=== PATIENT | female | born 1975 | race Asian ===

== ENCOUNTER 2017-04-08 11:05 | Inpatient (IN) | payer OTHER ==
[2017-04-08] VITALS (20 sets, daily range): BP systolic 94–105; BP diastolic 48–74; PULSE 66–90; RESP 14–27; Ht 165.1 cm; Wt 47.6 kg
[~2017-04-08] VITALS: Ht 165.1 cm; Wt 47.6 kg
[~2017-04-08 11:05] MED LIST: AMPICILLIN/SULB 3 GM/NS (PMX) 100 ML IVPB SCH; GLYCOPYRROLATE 0.4 MG INJ ONE; Metronidazole 500 MG in NS 100 ML IVPB SCH; NEOSTIGMINE 3 MG/3 ML SYRINGE ONE; SOD CHLORIDE 0.9% 1,000 ML IV SCH; metroNIDAZOLE 500 MG/100 ML NS IVPB ONE
[2017-04-08] MEDS ORDERED: BUPIVACAINE 0.25%/EPI (SDV) 30 ML INJ ONE (11:14)
[2017-04-08] MEDS ORDERED: LIDOCAINE 2% (SDV) 5 ML INJ ONE (13:40)
[2017-04-08] MEDS ORDERED: PROPOFOL 20 ML ONE (13:40)
[2017-04-08] MEDS ORDERED: ROCURONIUM 50 MG INJ ONE (13:40)
[2017-04-08] MEDS ORDERED: MIDAZOLAM 1 MG/ML 2 ML INJ ONE (13:40)
[2017-04-08] MEDS ORDERED: DIPHENHYDRAMINE 50 MG INJ IV PRN (14:00)
[2017-04-08] MEDS ORDERED: METOCLOPRAMIDE 10 MG INJ IV PRN (14:00)
[2017-04-08] MEDS ORDERED: LABETALOL HCL 20MG INJ IV PRN (14:00)
[2017-04-08] MEDS ORDERED: EPHEDrine SULFATE 50 MG/5 ML SYG IV PRN (14:00)
[2017-04-08] MEDS ORDERED: HYDROmorphONE (0.2 MG/ML) 10ML SYG IV PRN ×3 (14:00)
[2017-04-08] MEDS ORDERED: hydrALAzine 20 MG INJ IV PRN (14:00)
[2017-04-08] MEDS ORDERED: MEPERIDINE 25 MG INJ IV PRN (14:00)
[2017-04-08] MEDS ORDERED: FENTAnyl 50 MCG/ML VIAL IV PRN ×3 (14:00)
[2017-04-08] MEDS ORDERED: ONDANSETRON 4 MG INJ IV PRN (14:00)
[2017-04-08] MEDS ORDERED: BUPIVACAINE 0.25% (MPF) 30 ML INJ ONE (14:18)
[2017-04-08] MEDS ORDERED: ZOLPIDEM 5 MG TAB PO PRN (14:30)
[2017-04-08] MEDS ORDERED: NALOXONE (0.4 MG/ML) INJ IV PRN ×2 (14:30→18:30)
[2017-04-08] MEDS ORDERED: HYDROCODONE/APAP (5/325) TAB PO PRN (14:30)
[2017-04-08] MEDS ORDERED: HYDROmorphONE 1 MG/ML SYG IV PRN (14:30)
[2017-04-08] MEDS ORDERED: METHYLENE BLUE 1% 10 ML INJ ONE (15:56)
[2017-04-08] MEDS ORDERED: DEXAMETHASONE 4 MG/ML 1 ML INJ ONE (16:39)
[2017-04-08] MEDS ORDERED: ONDANSETRON 4 MG INJ ONE (16:40)
[2017-04-08] MEDS ORDERED: BUPIVACAINE 0.25% (MPF) 10 ML 10 ML VIAL ONE (17:49)
--- NOTE | 2017-04-08 18:07 | OPR ---
Date/Time of Note Date/Time of Note DATE: 04/08/17 TIME: 18:07 Operative Report Procedure Date: Apr 08, 2017 Preoperative Diagnosis colon cancer Postoperative Diagnosis sigmoid colon cancer Operation Performed lap left hemicolectomy with anastomosis lap splenic flexure mobilization Surgeon: Ranulfo ADAMS G. SEONG Apr 08, 2017 18:07
--- NOTE | 2017-04-08 18:21 | OPR ---
DATE OF OPERATION: 04/08/2017 INDICATION: This is a 41-year-old female with obstructive and bleeding sigmoid colon cancer. She is taken urgently to the OR for laparoscopic left hemicolectomy. Risks, alternatives, benefits, and personnel were discussed with the patient. Potential complications include but not limited to bleeding, infection, ureteral injury, anastomotic leak, need for reoperation, possible colostomy were discussed with the patient. She expressed understanding and consents to the operation. PREOPERATIVE DIAGNOSIS: Obstructive and bleeding colon cancer. POSTOPERATIVE DIAGNOSIS: Obstructive and bleeding colon cancer. OPERATION PERFORMED: 1. Laparoscopic left hemicolectomy with low pelvic colorectal anastomosis 2. Laparoscopic splenic flexure mobilization. 3. Laparoscopic lysis of adhesiona one hour SURGEON: Caleb Martinez MD SPECIMEN: Left colon and sigmoid colon. COMPLICATIONS: None. ANESTHESIA: General. SPECIMEN: Left colon with a single stitch distal and double stitch proximal margins. DESCRIPTION OF PROCEDURE: The patient was taken to the OR and prepped and draped in the usual sterile fashion. Surgical timeout was performed. IV antibiotics were given. Infraumbilical midline incision was made with a 15 blade. Dissection cautery was carried down to the fascia, 0 Vicryl stay sutures were placed of fashion. The fascia was opened. Balloon Elver trocar was introduced. Pneumoperitoneum was established. A suprapubic 12 mm optical trocar and right lower quadrant 12 mm optical trocars are placed under direct visualization. Upon initial inspection, there was an obvious sigmoid colon cancer with contraction in the sigmoid colon. There is no evidence of metastases in the abdomen. The liver remnant, which was the right liver, was examined. There is no evidence of obvious metastases on the liver surface. Dissection was first performed by identifying the left colic artery. Handheld Harmonic was used to isolate the left colic artery. The left ureter was also identified and peristalsis was identified. The left colic artery was divided using a 45 mm [place] vascular load stapler. The peritoneum was divided proximally and distally down to near the sacral promontory. The white line of [place] was also then divided proximally and distally. Splenic flexure mobilization was performed by dividing the omentum from the transverse mesocolon. This was taken off distally around the splenic flexure. The left colon was mobilized medially using blunt and Harmonic dissection. The splenic flexure was completely mobilized. The proximal rectum was then divided by using handheld Harmonic to divide the peritoneum and careful dissection underneath the posterior to the proximal rectum. This area was divided using a fire of the 45 [place] blue load stapler. The mesorectum was divided using a fire of the 45 [place] vascular load. The colon cancer was identified distally. The mesocolon of the left colon was then divided with continued dissection proximally near the midline. The colon was marked for anastomosis by placing several clips in the epiploicae of the colon. The extracorporal portion was then performed. Midline incision is extended around the umbilicus and superiorly. The fascia was divided. The left colon and sigmoid colon are mobilized and exteriorized after wound protector was placed into the midline incision. The proximal colon was then divided using several fires of a blue load 45 [place] stapler. The staple line was then cut out with scissors. EEA anvil 29 was placed after sizes are placed through the proximal colon. This was secured in place with a pursestring of 3-0 PDS. Gelport was placed on top of the wound protector. EEA sizers are placed into the rectum up to the 29 sizer. EEA stapler was placed for anastomosis and the anvil was reapproximated directly under direct visualization. A leak test was performed by first irrigating the pelvis with proximal occlusion and a bulb syringe. There was no evidence of any bubbles or an anastomotic leak. The irrigation was suctioned out. Intraoperative consult was made to evaluate the colon cancer. Distal and proximal margins are clear. Midline incision was closed with a running 0 PDS from superior to inferior, inferior to superior, and tied down. The wound was irrigated with Betadine. Skin was closed with interrupted 3-0 Vicryl and running 4-0 Monocryl. Local anesthesia was injected. Dry dressings were applied. Dictated By: CALEB GUERRERO/ELICEO Conf#: [id number] DID#: [id number] JANET
--- NOTE | 2017-04-08 18:29 | OPPN ---
Date/Time of Note Date/Time of Note DATE: 04/08/17 TIME: 18:29 Post-Anesthesia Notes Post-Anesthesia Note Last documented vital signs Vital Signs Date Time Temp Pulse Resp B/P Pulse Ox O2 Delivery O2 Flow Rate FiO2 04/08/17 18:08 98.2 27 105/53 99 Room Air 04/08/17 13:23 72 Activity: WNL Respiratory function: WNL Cardiovascular function: WNL Mental status: Baseline Pain reasonably controlled: Yes Hydration appropriate: Yes Nausea/Vomiting absent: Yes ARMANI ROSEN Apr 08, 2017 18:29
[2017-04-08] MEDS ORDERED: KETOROLAC 30 MG INJ IV PRN (18:30)
[2017-04-08 19:09] LABS: ADD SCAN DIFF NO
[2017-04-08 19:21] LABS: ABNORMAL IP MESSAGE 1; HEMATOCRIT 34.9 % (37.0-47.0); HEMOGLOBIN 10.9 g/dl (12.0-16.0); MEAN CORPUSCULAR HEMOGLOBIN 25.3 pg (29.0-33.0); MEAN CORPUSCULAR HGB CONC 31.2 g/dl (32.0-37.0); MEAN PLATELET VOLUME 10.5 fl (7.4-10.4); PLATELET COUNT 200 10^3/UL (140-415); RED BLOOD COUNT 4.31 10^6/ul (4.20-5.40); RED CELL DISTRIBUTION WIDTH 21.4 % (11.5-14.5); WHITE BLOOD COUNT 11.1 10^3/ul (4.8-10.8)
[2017-04-08 19:32] LABS: ALBUMIN 3.5 g/dl (3.3-4.9); ALBUMIN/GLOBULIN RATIO 1.4; BILIRUBIN,INDIRECT 0.3 mg/dl (0-1.1); BILIRUBIN,TOTAL 0.3 mg/dl (0.2-1.3); CALCIUM 7.6 mg/dl (8.4-10.2); CREATININE 0.59 mg/dl (0.44-1.00)
[2017-04-08] MEDS: HYDROmorphONE 1 MG/ML SYG IV PRN (19:35)
[2017-04-08] MEDS: D5W-0.45 NACL + KCL 20 MEQ 1,000 ML IV SCH (20:06)
[2017-04-08] MEDS: HYDROmorphONE 0.2 MG/ML PCA IV SCH (20:08)
[2017-04-08 20:49] LABS: EOSINOPHILS # 0.1 10^3/ul (0.0-0.5); LYMPHOCYTES # 0.6 10^3/ul (0.8-2.9); MONOCYTE # 0.3 10^3/ul (0.3-0.9); NEUTROPHIL # 9.5 10^3/ul (1.6-7.5)
[2017-04-08] MEDS: AMPICILLIN/SULB 3 GM/NS (PMX) 100 ML IVPB SCH (21:14)
[2017-04-08] MEDS: metroNIDAZOLE 500 MG/NS (PMX) 100 ML IVPB SCH (22:26)
[2017-04-09] VITALS: BP 95/54; PULSE 86; RESP 16
[2017-04-09] MEDS: AMPICILLIN/SULB 3 GM/NS (PMX) 100 ML IVPB SCH ×3 (02:24→12:06)
[2017-04-09] MEDS: D5W-0.45 NACL + KCL 20 MEQ 1,000 ML IV SCH ×3 (04:03→23:31)
[2017-04-09] MEDS: KETOROLAC 30 MG INJ IV PRN (04:23)
[2017-04-09] MEDS: HYDROmorphONE 0.2 MG/ML PCA IV SCH ×3 (04:52→20:04)
[2017-04-09 05:16] LABS: ADD SCAN DIFF NO; BASOPHILS % 0.1 % (0.0-2.0); HEMATOCRIT 30.9 % (37.0-47.0); HEMOGLOBIN 9.7 g/dl (12.0-16.0); LYMPHOCYTES # 0.7 10^3/ul (0.8-2.9); LYMPHOCYTES % 4.8 % (15.0-51.0); MEAN CORPUSCULAR HEMOGLOBIN 25.6 pg (29.0-33.0); MEAN CORPUSCULAR HGB CONC 31.4 g/dl (32.0-37.0); MEAN CORPUSCULAR VOLUME 81.5 fl (82.0-101.0); MEAN PLATELET VOLUME 10.2 fl (7.4-10.4); MONOCYTE # 0.6 10^3/ul (0.3-0.9); MONOCYTES % 4.3 % (0.0-11.0); NEUTROPHIL # 12.5 10^3/ul (1.6-7.5); NEUTROPHILS % 90.3 % (39.0-77.0); PLATELET COUNT 182 10^3/UL (140-415); RED BLOOD COUNT 3.79 10^6/ul (4.20-5.40); RED CELL DISTRIBUTION WIDTH 21.2 % (11.5-14.5); WHITE BLOOD COUNT 13.8 10^3/ul (4.8-10.8)
[2017-04-09 05:40] LABS: ALBUMIN 3.2 g/dl (3.3-4.9); ALBUMIN/GLOBULIN RATIO 1.28; BILIRUBIN,INDIRECT 0.3 mg/dl (0-1.1); BILIRUBIN,TOTAL 0.3 mg/dl (0.2-1.3); CALCIUM 7.9 mg/dl (8.4-10.2); CREATININE 0.55 mg/dl (0.44-1.00); POTASSIUM 4.5 mmol/L (3.5-5.1); TOTAL PROTEIN 5.7 g/dl (6.1-8.1)
[2017-04-09] MEDS: metroNIDAZOLE 500 MG/NS (PMX) 100 ML IVPB SCH ×2 (05:49→10:48)
[2017-04-09 09:07] VITALS: BP 87/59; RESP 18
--- NOTE | 2017-04-09 10:40 | HP ---
DATE OF ADMISSION: 04/08/2017 CHIEF COMPLAINT AND HISTORY OF PRESENT ILLNESS: The patient is a 41-year-old female who underwent colonoscopy due to abdominal pain and rectal bleed and was diagnosed with obstructive and bleeding s igmoid colon cancer. The patient was seen by Dr. Martinez as an outpatient and was brought into the hosp ital and underwent laparoscopic left hemicolectomy. The patient is being admitted for further evalu ation and management. During surgery, there was no evidence of obvious metastasis on the liver surf sabas. The patient underwent laparoscopic left hemicolectomy with low pelvic colorectal anastomosis. The patient denies any chest pain or shortness of breath since surgery. No reported fever or chill s. No reported leg edema or any weakness in the lower extremities. The patient's blood pressures h ave been running between 80s and 90s, although the patient remains asymptomatic. The patient contin ues to receive IV fluids. The patient also remains awake, alert, and postoperative pain is reasonab ly controlled. REVIEW OF SYSTEMS: Other than postoperative pain, the rest of review of systems were unremarkable. PAST SURGICAL HISTORY: The patient is status post surgery as a partial liver donor to her daughter several years ago. ALLERGIES: NONE. SOCIAL HISTORY: The patient occasionally smokes. FAMILY HISTORY: Negative for CA colon. PHYSICAL EXAMINATION: GENERAL: The patient is conscious, awake, alert. VITAL SIGNS: Temperature 98.2, pulse 86, respirations 16, blood pressure 95/54, O2 saturation 98% o n 2 liters nasal cannula. HEENT: No eye discharge or redness. Oropharynx clear. NECK: No mass. CHEST: Fairly clear. CARDIOVASCULAR: S1, S2 normal. No murmur. ABDOMEN: The patient is status post surgery. EXTREMITIES: No leg edema. Pedal pulses palpable. SKIN: Without acute rash. NEUROLOGIC: The patient is awake, alert, fairly oriented with no gross focal deficit. LABORATORY DATA: On the day of admission, WBC 11.1, hemoglobin 10.9, platelets 200. Sodium 140, po tassium 4, BUN 11, creatinine 0.5. White count today is 13.8. The patient, however, does not have any fever. IMPRESSION: 1. Sigmoid cancer status post laparoscopic left hemicolectomy with low pelvic colorectal anastomosi s. 2. 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 PLAN: The patient will be kept n.p.o. and we will continue IV fluids. We will use IV Dilaudid and IV Toradol for pain control. The patient did receive Unasyn and Flagyl perioperatively as per samantha col. We will use SCDs for DVT prophylaxis. We will continue to follow her from a medical standpoin t. Dictated By: NATHAN CARVAJAL/ELICEO Conf#: [id number] DID#: [id number]
[2017-04-09] MEDS: HYDROmorphONE 1 MG/ML SYG IV PRN (17:58)
[2017-04-09 19:00] VITALS: BP 96/55; RESP 18
[2017-04-09] MEDS: DIPHENHYDRAMINE 50 MG INJ IV PRN (23:45)
[2017-04-10] MEDS ORDERED: ACETAMINOPHEN 1000MG/100ML IV 100 ML IVPB PRN (03:30)
[2017-04-10] MEDS ORDERED: ACETAMINOPHEN 1000MG/100ML IV 100 ML IVPB SCH (03:30)
[2017-04-10] MEDS: KETOROLAC 30 MG INJ IV PRN (03:49)
[2017-04-10] MEDS: HYDROmorphONE 0.2 MG/ML PCA IV SCH ×3 (04:29→23:11)
[2017-04-10 05:19] LABS: ADD SCAN DIFF NO
[2017-04-10 05:28] LABS: BASOPHILS % 0.1 % (0.0-2.0); EOSINOPHILS # 0.2 10^3/ul (0.0-0.5); EOSINOPHILS % 2.1 % (0.0-7.0); HEMATOCRIT 30.9 % (37.0-47.0); HEMOGLOBIN 9.4 g/dl (12.0-16.0); LYMPHOCYTES # 1.1 10^3/ul (0.8-2.9); LYMPHOCYTES % 13.8 % (15.0-51.0); MEAN CORPUSCULAR HEMOGLOBIN 25.1 pg (29.0-33.0); MEAN CORPUSCULAR HGB CONC 30.4 g/dl (32.0-37.0); MEAN CORPUSCULAR VOLUME 82.6 fl (82.0-101.0); MEAN PLATELET VOLUME 10.5 fl (7.4-10.4); MONOCYTE # 0.3 10^3/ul (0.3-0.9); MONOCYTES % 3.5 % (0.0-11.0); NEUTROPHIL # 6.1 10^3/ul (1.6-7.5); NEUTROPHILS % 80.1 % (39.0-77.0); PLATELET COUNT 158 10^3/UL (140-415); RED BLOOD COUNT 3.74 10^6/ul (4.20-5.40); RED CELL DISTRIBUTION WIDTH 21.2 % (11.5-14.5); WHITE BLOOD COUNT 7.6 10^3/ul (4.8-10.8)
[2017-04-10 05:42] LABS: ALBUMIN 3.1 g/dl (3.3-4.9); ALBUMIN/GLOBULIN RATIO 1.24; BILIRUBIN,INDIRECT 0.2 mg/dl (0-1.1); BILIRUBIN,TOTAL 0.2 mg/dl (0.2-1.3); CALCIUM 7.6 mg/dl (8.4-10.2); CREATININE 0.59 mg/dl (0.44-1.00); POTASSIUM 3.9 mmol/L (3.5-5.1); TOTAL PROTEIN 5.6 g/dl (6.1-8.1)
[2017-04-10] MEDS: DIPHENHYDRAMINE 50 MG INJ IV PRN ×2 (06:02→12:14)
[2017-04-10 07:51] VITALS: BP 90/50; RESP 19
[2017-04-10] MEDS: D5W-0.45 NACL + KCL 20 MEQ 1,000 ML IV SCH ×2 (09:11→23:04)
[2017-04-10 12:21] VITALS: BP 103/60; PULSE 91
[2017-04-10] MEDS: ACETAMINOPHEN 1000 MG/100 ML IVPB PRN ×2 (13:32→23:04)
--- NOTE | 2017-04-10 14:40 | PN ---
DATE: 04/10/2017 Postop day #2, status post resection of the left sigmoid colon resection and anastomosis SUBJECTIVE: Feels okay. No new complaint, no new events. OBJECTIVE: VITAL SIGNS: Temperature 98, heart rate 73, respirations 19, blood pressure 90/50, saturation 98% o n 2 liters nasal cannula. LABORATORY DATA: WBC dropped to 7600 with 80% segmented, hemoglobin 9.4, hematocrit 30.9. Sodium a nd potassium within normal . The patient states that maybe she has passed some gas. Parker was discontinued today morning and pat ievictor hugo has been urinating since then. The patient has been out of bed, sitting in the chair for 1 shon r. No nausea, no vomiting. ABDOMEN: Slightly distended. Bowel sounds, maybe 2+/4+. EXTREMITIES: Legs no calf tenderness. SCDs on the legs. The nurse reported that last night she reported that the patient had a temperature up to 100, but to day the patient is not febrile and on the computer I cannot see any documentation of temperature. PLAN: In any case, plan: Start patient on ice chips. Continue current care. Encourage patient to get out of bed and walk around with help. Continue to monitor the patient closely. Dictated By: THELMA SIGALA/ELICEO Conf#: [id number] DID#: [id number]
--- NOTE | 2017-04-10 17:21 | PN ---
Date/Time of Note Date/Time of Note DATE: 04/10/17 TIME: 17:19 Assessment/Plan VTE Prophylaxis VTE Prophylaxis Intervention: other Lines/Catheters IV Catheter Type (from Nrs): Peripheral IV Urinary Cath still in place: No (DTV by 1200\) Assessment/Plan Assessment/Plan 1. 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 - per sx - IV Dilaudid and IV Toradol for pain control - continue IV fluids. 2. Febrile illness - IV tylenol - afebrile now 2. 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 We will use SCDs for DVT prophylaxis. Arjun Ellis Subjective 24 Hr Interval Summary Respiratory: no complaints Cardiovascular: no complaints Gastrointestinal: no complaints Genitourinary: no complaints Musculoskeletal: no complaints Exam/Review of Systems Vital Signs Vitals Vital Signs Date Time Temp Pulse Resp B/P Pulse Ox O2 Delivery O2 Flow Rate FiO2 04/10/17 15:00 98.1 04/10/17 13:04 16 04/10/17 12:21 91 103/60 04/10/17 07:51 98 04/09/17 20:00 Nasal Cannula 2.0 Intake and Output 04/09/17 04/09/17 04/10/17 15:00 23:00 07:00 Intake Total 200 ml 500 ml 1150 ml Output Total 1100 ml 600 ml Balance 200 ml -600 ml 550 ml Exam Constitutional: alert, oriented, well developed ENMT: nl external ears & nose Respiratory: clear to auscultation, normal air movement Cardiovascular: nl pulses, regular rate and rhythm Gastrointestinal: non-tender, soft Musculoskeletal: nl extremities to inspection Extremities: normal pulses Neurological: nl mental status, nl speech Lymph: nontender Results Result Diagram: 04/10/17 0424 04/10/17 0424 Results 24 hrs Laboratory Tests Test 04/10/17 04:24 White Blood Count 7.6 # Red Blood Count 3.74 L Hemoglobin 9.4 L Hematocrit 30.9 L Mean Corpuscular Volume 82.6 Mean Corpuscular Hemoglobin 25.1 L Mean Corpuscular Hemoglobin Concent 30.4 L Red Cell Distribution Width 21.2 H Platelet Count 158 Mean Platelet Volume 10.5 H Neutrophils % 80.1 H Lymphocytes % 13.8 L Monocytes % 3.5 Eosinophils % 2.1 Basophils % 0.1 Nucleated Red Blood Cells % 0.0 Neutrophils # 6.1 Lymphocytes # 1.1 Monocytes # 0.3 Eosinophils # 0.2 Basophils # 0.0 Nucleated Red Blood Cells # 0.0 Sodium Level 136 Potassium Level 3.9 Chloride Level 103 Carbon Dioxide Level 29 Anion Gap 8 Blood Urea Nitrogen 4 L Creatinine 0.59 Glucose Level 103 # Calcium Level 7.6 L Total Bilirubin 0.2 Direct Bilirubin 0.00 Indirect Bilirubin 0.2 Aspartate Amino Transf (AST/SGOT) 29 Alanine Aminotransferase (ALT/SGPT) 31 Alkaline Phosphatase 56 Total Protein 5.6 L Albumin 3.1 L Globulin 2.50 Albumin/Globulin Ratio 1.24 Medications Medications Current Medications Hydromorphone HCl (Dilaudid) 0.2 mg Q2H PRN IV PAIN LEVEL 1-5; Start 04/08/17 at 14:30 Hydromorphone HCl (Dilaudid) 0.4 mg Q2H PRN IV PAIN LEVEL 6-10 Last administered on 04/09/17 17:58; Admin Dose 0.4 MG; Start 04/08/17 at 14:30 Ketorolac Tromethamine (Toradol) 30 mg Q6H PRN IV PAIN LEVEL 6-10 Last administered on 04/10/17 03:49; Admin Dose 30 MG; Start 04/08/17 at 14:30; Stop 04/11/17 at 14:29 Acetaminophen/ Hydrocodone Bitart ([place] (5/325)) 1 tab Q4H PRN PO PAIN LEVEL 4 -6; Start 04/08/17 at 14:30 Diphenhydramine HCl (Benadryl) 25 mg Q4H PRN IV PRURITUS Last administered on 12:14; Admin Dose 25 MG; Start 04/08/17 at 14:30 Ondansetron HCl (Zofran Inj) 4 mg Q6H PRN IV NAUSEA AND/OR VOMITING; Start 04/08 at 14:30 Naloxone HCl (Narcan) 0.2 mg Q2M PRN IV FOR RESP RATE 8 OR LESS; Start 04/08/17 at 14:30 Ketorolac Tromethamine 30 mg 30 mg Q6H PRN IV PAIN; Start 04/08/17 at 18:30; Stop 04/11/17 at 18:29 Potassium Chloride/Dextrose/ Sod Cl (D5-1/2ns + KCl 20 Meq) 1,000 ml @ 100 mls/ hr Q10H IV Last administered on 04/10/17 09:11; Admin Dose 100 MLS/HR; Start at 18:03 Naloxone HCl (Narcan) 0.2 mg Q2M PRN IV RR 8 BREATHS/MIN OR LESS; Start at 18:30 Hydromorphone HCl Q4PCA IV Last administered on 04/10/17 13:58; Admin Dose 6 MG; Start 04/08/17 at 18:30 Acetaminophen (Ofirmev 1000mg/ 100ml Iv) 70 ml @ 400 mls/hr Q6H PRN IVPB FEVER Last administered on 04/10/17 13:32; Admin Dose 400 MLS/HR; Start 04/10/17 at 04:00 ALIS BERNARD Apr 10, 2017 17:21
[2017-04-10 19:23] VITALS: BP 94/54; RESP 16
[2017-04-10 22:58] VITALS: RESP 20
[2017-04-11] MEDS: D5W-0.45 NACL + KCL 20 MEQ 1,000 ML IV SCH ×3 (05:26→21:55)
[2017-04-11 05:40] LABS: ADD SCAN DIFF NO
[2017-04-11 05:51] LABS: ABNORMAL IP MESSAGE 1; BASOPHILS % 0.2 % (0.0-2.0); EOSINOPHILS # 0.2 10^3/ul (0.0-0.5); EOSINOPHILS % 4.4 % (0.0-7.0); HEMATOCRIT 30.6 % (37.0-47.0); HEMOGLOBIN 9.3 g/dl (12.0-16.0); LYMPHOCYTES # 0.4 10^3/ul (0.8-2.9); LYMPHOCYTES % 9.7 % (15.0-51.0); MEAN CORPUSCULAR HEMOGLOBIN 25.1 pg (29.0-33.0); MEAN CORPUSCULAR HGB CONC 30.4 g/dl (32.0-37.0); MEAN CORPUSCULAR VOLUME 82.5 fl (82.0-101.0); MEAN PLATELET VOLUME 10.5 fl (7.4-10.4); MONOCYTE # 0.1 10^3/ul (0.3-0.9); MONOCYTES % 2.4 % (0.0-11.0); NEUTROPHIL # 3.4 10^3/ul (1.6-7.5); NEUTROPHILS % 83.1 % (39.0-77.0); PLATELET COUNT 142 10^3/UL (140-415); RED BLOOD COUNT 3.71 10^6/ul (4.20-5.40); WHITE BLOOD COUNT 4.1 10^3/ul (4.8-10.8)
[2017-04-11] MEDS: ACETAMINOPHEN 1000 MG/100 ML IVPB PRN ×2 (05:53→16:00)
[2017-04-11] MEDS: ONDANSETRON 4 MG INJ IV PRN ×2 (05:54→11:34)
[2017-04-11 06:20] LABS: CREATININE 0.51 mg/dl (0.44-1.00); POTASSIUM 4.2 mmol/L (3.5-5.1)
[2017-04-11] MEDS: HYDROmorphONE 0.2 MG/ML PCA IV SCH (06:21)
--- NOTE | 2017-04-11 08:14 | PN ---
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 24 Hr Interval Summary Free Text/Dictation doing well, no issues, no nausea, no vomiting, passing gas Exam/Review of Systems Vital Signs Vitals Vital Signs Date Time Temp Pulse Resp B/P Pulse Ox O2 Delivery O2 Flow Rate FiO2 04/11/17 05:15 18 04/10/17 22:58 98.5 100 Nasal Cannula 1.0 04/10/17 19:23 78 94/54 Intake and Output 04/10/17 04/10/17 04/11/17 15:00 23:00 07:00 Intake Total 300 ml 1300 ml 1800 ml Output Total 1000 ml 850 ml Balance 300 ml 300 ml 950 ml Exam c/d/i Results Result Diagram: 04/11/17 0415 04/11/17 0415 Results 24 hrs Laboratory Tests Test 04/11/17 04:15 White Blood Count 4.1 #L Red Blood Count 3.71 L Hemoglobin 9.3 L Hematocrit 30.6 L Mean Corpuscular Volume 82.5 Mean Corpuscular Hemoglobin 25.1 L Mean Corpuscular Hemoglobin Concent 30.4 L Red Cell Distribution Width 21.0 H Platelet Count 142 Mean Platelet Volume 10.5 H Neutrophils % 83.1 H Lymphocytes % 9.7 L Monocytes % 2.4 Eosinophils % 4.4 Basophils % 0.2 Nucleated Red Blood Cells % 0.0 Neutrophils # 3.4 Lymphocytes # 0.4 L Monocytes # 0.1 L Eosinophils # 0.2 Basophils # 0.0 Nucleated Red Blood Cells # 0.0 Sodium Level 138 Potassium Level 4.2 Chloride Level 103 Carbon Dioxide Level 31 Anion Gap 8 Blood Urea Nitrogen 3 L Creatinine 0.51 Glucose Level 99 Calcium Level 8.0 L Medications Medications Current Medications Hydromorphone HCl (Dilaudid) 0.2 mg Q2H PRN IV PAIN LEVEL 1-5; Start 04/08/17 at 14:30 Hydromorphone HCl (Dilaudid) 0.4 mg Q2H PRN IV PAIN LEVEL 6-10 Last administered on 04/09/17 17:58; Admin Dose 0.4 MG; Start 04/08/17 at 14:30 Ketorolac Tromethamine (Toradol) 30 mg Q6H PRN IV PAIN LEVEL 6-10 Last administered on 04/10/17 03:49; Admin Dose 30 MG; Start 04/08/17 at 14:30; Stop 04/11/17 at 14:29 Acetaminophen/ Hydrocodone Bitart ([place] (5/325)) 1 tab Q4H PRN PO PAIN LEVEL 4 -6; Start 04/08/17 at 14:30 Diphenhydramine HCl (Benadryl) 25 mg Q4H PRN IV PRURITUS Last administered on 12:14; Admin Dose 25 MG; Start 04/08/17 at 14:30 Ondansetron HCl (Zofran Inj) 4 mg Q6H PRN IV NAUSEA AND/OR VOMITING Last administered on 04/11/17 05:54; Admin Dose 4 MG; Start 04/08/17 at 14:30 Naloxone HCl (Narcan) 0.2 mg Q2M PRN IV FOR RESP RATE 8 OR LESS; Start 04/08/17 at 14:30 Ketorolac Tromethamine 30 mg 30 mg Q6H PRN IV PAIN; Start 04/08/17 at 18:30; Stop 04/11/17 at 18:29 Potassium Chloride/Dextrose/ Sod Cl (D5-1/2ns + KCl 20 Meq) 1,000 ml @ 100 mls/ hr Q10H IV Last administered on 04/10/17 23:04; Admin Dose 100 MLS/HR; Start at 18:03 Naloxone HCl (Narcan) 0.2 mg Q2M PRN IV RR 8 BREATHS/MIN OR LESS; Start at 18:30 Hydromorphone HCl Q4PCA IV Last administered on 04/11/17 06:21; Admin Dose 6 MG; Start 04/08/17 at 18:30 Acetaminophen (Ofirmev 1000mg/ 100ml Iv) 70 ml @ 400 mls/hr Q6H PRN IVPB FEVER Last administered on 04/11/17 05:53; Admin Dose 400 MLS/HR; Start 04/10/17 at 04:00 Ranulfo ADAMS Apr 11, 2017 08:14
[2017-04-11] MEDS ORDERED: HYDROCODONE/APAP (5/325) TAB PO PRN (08:30)
[2017-04-11 08:57] VITALS: BP 113/56; RESP 19
--- NOTE | 2017-04-11 09:02 | PN ---
DATE: 04/09/2017 Postop day #1, status post laparotomy and laparoscopy, left sigmoid resection for cancer of the sigmoid colon and anastomosis. SUBJECTIVE: No new complaint. Has been out of bed in the chair. Has passed a minimal amount of gas. No nausea, no vomiting. Pain is under control with SALAD CHEF. OBJECTIVE: GENERAL: Alert, awake, oriented x3, comfortable. VITAL SIGNS: Temperature 98.2, heart rate 86, respirations 18, blood pressure 87/59, saturation 99% on 2 liters nasal flow. LABORATORY: WBC is 15,800 with 90% segmented. Hemoglobin 9.7, hematocrit 30.9. Chemistry: Sodium, potassium normal. BUN and creatinine normal. Calcium 7.9, total protein 5.7, albumin is 3.2. ABDOMEN: Very soft. Parker catheter is in place. Bowel sounds hypoactive. EXTREMITIES: no edema, no calf tenderness. ASSESSMENT: Postop day #1 sigmoid resection, with laparoscopic and hand assisted. The patient is stable on postop day #1. PLAN: Continue the current care. Dictated By: THELMA MCDANIEL MD PS/NTS Conf#: [id number] DID#: [id number] MTDD
[2017-04-11] MEDS: KETOROLAC 30 MG INJ IV PRN (11:08)
[2017-04-11] MEDS ORDERED: ACETAMINOPHEN/CODEINE #3 TAB PO PRN (13:30)
[2017-04-11] MEDS ORDERED: ONDANSETRON 4 MG INJ IV PRN (13:30)
[2017-04-11] MEDS: PANTOPRAZOLE 40 MG INJ IV SCH (14:07)
--- NOTE | 2017-04-11 14:56 | RADRPT ---
PROCEDURE: XR Abdomen. CLINICAL INDICATION: Nausea and vomiting TECHNIQUE: AP abdomen x-ray. COMPARISON: None. FINDINGS: There is a nonobstructive bowel gas pattern. Air is noted in the ascending and transverse colon. The liver appears enlarged, measuring up to 20 cm. There are no abnormal calcifications overlying the urinary tracts. There are surgical clips in the right upper abdominal quadrant. Surgical clips are also identified i n the left lower abdominal quadrant. IMPRESSION: Nonobstructive bowel gas pattern. Apparent hepatomegaly. A right upper quadrant ultrasound or CT study of the abdomen and pelvis can be obtained for further evaluation. Postsurgical changes in the right upper and left lower abdominal quadrants. Correlation with surgic al history is recommended. RPTAT: EE Physician Kimi Date Time Electronically viewed and signed by Physician Kimi on 04/11/2017 14:55 /
--- NOTE | 2017-04-11 18:15 | PN ---
Date/Time of Note Date/Time of Note DATE: 04/11/17 TIME: 18:13 Assessment/Plan VTE Prophylaxis VTE Prophylaxis Intervention: SCD's Lines/Catheters IV [facility] Type (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 Positive flatus, hypoactive BS. Problems: Assessment/Plan 1. 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 Advance diet per surgery. 2. 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 Exam/Review of Systems Vital Signs Vitals Vital Signs Date Time Temp Pulse Resp B/P Pulse Ox O2 Delivery O2 Flow Rate FiO2 04/11/17 09:29 16 04/11/17 08:57 98.1 78 113/56 95 04/10/17 22:58 Nasal Cannula 1.0 Intake and Output 04/10/17 04/10/17 04/11/17 15:00 23:00 07:00 Intake Total 300 ml 1300 ml 1800 ml Output Total 1000 ml 850 ml Balance 300 ml 300 ml 950 ml Exam Constitutional: alert, oriented Head: atraumatic, normocephalic Neck: supple Respiratory: clear to auscultation Cardiovascular: nl pulses Gastrointestinal: soft Musculoskeletal: nl extremities to inspection Extremities: normal pulses 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 intact Results Result Diagram: 04/11/17 0415 04/11/17 0415 Results 24 hrs Laboratory Tests Test 04/11/17 04:15 White Blood Count 4.1 #L Red Blood Count 3.71 L Hemoglobin 9.3 L Hematocrit 30.6 L Mean Corpuscular Volume 82.5 Mean Corpuscular Hemoglobin 25.1 L Mean Corpuscular Hemoglobin Concent 30.4 L Red Cell Distribution Width 21.0 H Platelet Count 142 Mean Platelet Volume 10.5 H Neutrophils % 83.1 H Lymphocytes % 9.7 L Monocytes % 2.4 Eosinophils % 4.4 Basophils % 0.2 Nucleated Red Blood Cells % 0.0 Neutrophils # 3.4 Lymphocytes # 0.4 L Monocytes # 0.1 L Eosinophils # 0.2 Basophils # 0.0 Nucleated Red Blood Cells # 0.0 Sodium Level 138 Potassium Level 4.2 Chloride Level 103 Carbon Dioxide Level 31 Anion Gap 8 Blood Urea Nitrogen 3 L Creatinine 0.51 Glucose Level 99 Calcium Level 8.0 L Medications Medications Current Medications Hydromorphone HCl (Dilaudid) 0.2 mg Q2H PRN IV PAIN LEVEL 1-5; Start 04/08/17 at 14:30 Hydromorphone HCl (Dilaudid) 0.4 mg Q2H PRN IV PAIN LEVEL 6-10 Last administered on 04/09/17 17:58; Admin Dose 0.4 MG; Start 04/08/17 at 14:30 Diphenhydramine HCl (Benadryl) 25 mg Q4H PRN IV PRURITUS Last administered on 12:14; Admin Dose 25 MG; Start 04/08/17 at 14:30 Ondansetron HCl (Zofran Inj) 4 mg Q6H PRN IV NAUSEA AND/OR VOMITING Last administered on 04/11/17 11:34; Admin Dose 4 MG; Start 04/08/17 at 14:30 Naloxone HCl (Narcan) 0.2 mg Q2M PRN IV FOR RESP RATE 8 OR LESS; Start 04/08/17 at 14:30 Ketorolac Tromethamine 30 mg 30 mg Q6H PRN IV PAIN; Start 04/08/17 at 18:30; Stop 04/11/17 at 18:29 Potassium Chloride/Dextrose/ Sod Cl 1,000 ml @ 100 mls/hr Q10H IV Last administered on 04/11/17 10:03; Admin Dose 100 MLS/HR; Start 04/08/17 at 18:03 Acetaminophen (Ofirmev 1000mg/ 100ml Iv) 70 ml @ 400 mls/hr Q6H PRN IVPB FEVER Last administered on 04/11/17 16:00; Admin Dose 400 MLS/HR; Start 04/10/17 at 04:00 Acetaminophen/ Codeine Phosphate (Tylenol No.3) 1 tab Q6H PRN PO PAIN; Start at 13:30 Pantoprazole (Protonix Iv) 40 mg DAILY@06 IV Last administered on 04/11/17 14: 07; Admin Dose 40 MG; Start 04/11/17 at 13:30 Ondansetron HCl (Zofran Inj) 4 mg Q4H PRN IV NAUSEA AND/OR VOMITING; Start 04/11 at 13:30 JOSEFA ADAIR Apr 11, 2017 18:15
[2017-04-11 19:06] VITALS: BP 96/53; RESP 16
[2017-04-11] MEDS: HYDROmorphONE 1 MG/ML SYG IV PRN (19:27)
[2017-04-12] MEDS: HYDROmorphONE 1 MG/ML SYG IV PRN ×7 (03:05→23:31)
[2017-04-12] MEDS: PANTOPRAZOLE 40 MG INJ IV SCH (05:22)
[2017-04-12 05:35] LABS: ADD SCAN DIFF NO
[2017-04-12 05:45] LABS: ABNORMAL IP MESSAGE 1; EOSINOPHILS # 0.2 10^3/ul (0.0-0.5); EOSINOPHILS % 3.7 % (0.0-7.0); HEMATOCRIT 29.2 % (37.0-47.0); HEMOGLOBIN 9.1 g/dl (12.0-16.0); LYMPHOCYTES # 0.5 10^3/ul (0.8-2.9); LYMPHOCYTES % 9.6 % (15.0-51.0); MEAN CORPUSCULAR HGB CONC 31.2 g/dl (32.0-37.0); MEAN CORPUSCULAR VOLUME 80.2 fl (82.0-101.0); MEAN PLATELET VOLUME 10.5 fl (7.4-10.4); MONOCYTE # 0.1 10^3/ul (0.3-0.9); MONOCYTES % 2.5 % (0.0-11.0); NEUTROPHIL # 4.7 10^3/ul (1.6-7.5); NEUTROPHILS % 83.8 % (39.0-77.0); PLATELET COUNT 154 10^3/UL (140-415); RED BLOOD COUNT 3.64 10^6/ul (4.20-5.40); RED CELL DISTRIBUTION WIDTH 20.8 % (11.5-14.5); WHITE BLOOD COUNT 5.6 10^3/ul (4.8-10.8)
[2017-04-12 06:05] LABS: CALCIUM 7.8 mg/dl (8.4-10.2); CREATININE 0.52 mg/dl (0.44-1.00)
[2017-04-12] MEDS: D5W-0.45 NACL + KCL 20 MEQ 1,000 ML IV SCH ×2 (08:23→22:15)
[2017-04-12 08:38] VITALS: BP 108/71; RESP 14
[2017-04-12] MEDS ORDERED: KETOROLAC 30 MG INJ IV STA (10:37)
--- NOTE | 2017-04-12 14:25 | PN ---
Date/Time of Note Date/Time of Note DATE: 04/12/17 TIME: 14:24 Assessment/Plan VTE Prophylaxis VTE Prophylaxis Intervention: SCD's Lines/Catheters IV Catheter Type (from Nrs): Peripheral IV Urinary Cath still in place: No (DTV by 1200\) Assessment/Plan Chief Complaint/Hosp Course s/p lap left hemicolectomy and lap splenic flexure mobilization Problems: Assessment/Plan had vomiting yesterday after taking an oral norco, no further emesis restart clears Subjective 24 Hr Interval Summary Free Text/Dictation had some emesis yesterday, no issues today Exam/Review of Systems Vital Signs Vitals Vital Signs Date Time Temp Pulse Resp B/P Pulse Ox O2 Delivery O2 Flow Rate FiO2 04/12/17 08:38 97.9 81 14 108/71 97 04/10/17 22:58 Nasal Cannula 1.0 Intake and Output 04/11/17 04/11/17 04/12/17 15:00 23:00 07:00 Intake Total 400 ml 1460 ml 700 ml Output Total 1750 ml Balance 400 ml -290 ml 700 ml Exam c/d/i Results Result Diagram: 04/12/17 0455 04/12/17 0455 Results 24 hrs Laboratory Tests Test 04/12/17 04:55 04/12/17 06:50 White Blood Count 5.6 # Red Blood Count 3.64 L Hemoglobin 9.1 L Hematocrit 29.2 L Mean Corpuscular Volume 80.2 L Mean Corpuscular Hemoglobin 25.0 L Mean Corpuscular Hemoglobin Concent 31.2 L Red Cell Distribution Width 20.8 H Platelet Count 154 Mean Platelet Volume 10.5 H Neutrophils % 83.8 H Lymphocytes % 9.6 L Monocytes % 2.5 Eosinophils % 3.7 Basophils % 0.0 Nucleated Red Blood Cells % 0.0 Neutrophils # 4.7 Lymphocytes # 0.5 L Monocytes # 0.1 L Eosinophils # 0.2 Basophils # 0.0 Nucleated Red Blood Cells # 0.0 Sodium Level 136 Potassium Level 4.0 Chloride Level 105 Carbon Dioxide Level 26 Anion Gap 9 Blood Urea Nitrogen 5 L Creatinine 0.52 Glucose Level 130 Calcium Level 7.8 L Lab Scanned Report LAB Medications Medications Current Medications Hydromorphone HCl (Dilaudid) 0.2 mg Q2H PRN IV PAIN LEVEL 1-5; Start 04/08/17 at 14:30 Hydromorphone HCl (Dilaudid) 0.4 mg Q2H PRN IV PAIN LEVEL 6-10 Last administered on 04/12/17 08:24; Admin Dose 0.4 MG; Start 04/08/17 at 14:30 Diphenhydramine HCl (Benadryl) 25 mg Q4H PRN IV PRURITUS Last administered on 12:14; Admin Dose 25 MG; Start 04/08/17 at 14:30 Ondansetron HCl (Zofran Inj) 4 mg Q6H PRN IV NAUSEA AND/OR VOMITING Last administered on 04/11/17 11:34; Admin Dose 4 MG; Start 04/08/17 at 14:30 Naloxone HCl 0.2 mg 0.2 mg Q2M PRN IV FOR RESP RATE 8 OR LESS; Start 04/08/17 at 14:30 Potassium Chloride/Dextrose/ Sod Cl 1,000 ml @ 100 mls/hr Q10H IV Last administered on 04/12/17 08:23; Admin Dose 100 MLS/HR; Start 04/08/17 at 18:03 Acetaminophen (Ofirmev 1000mg/ 100ml Iv) 70 ml @ 400 mls/hr Q6H PRN IVPB FEVER Last administered on 04/11/17 16:00; Admin Dose 400 MLS/HR; Start 04/10/17 at 04:00 Acetaminophen/ Codeine Phosphate (Tylenol No.3) 1 tab Q6H PRN PO PAIN; Start at 13:30 Pantoprazole (Protonix Iv) 40 mg DAILY@06 IV Last administered on 04/12/17 05: 22; Admin Dose 40 MG; Start 04/11/17 at 13:30 Ondansetron HCl (Zofran Inj) 4 mg Q4H PRN IV NAUSEA AND/OR VOMITING; Start 04/11 at 13:30 Hydromorphone HCl (Dilaudid) 1 mg Q4H PRN IV PAIN Last administered on 10:52; Admin Dose 1 MG; Start 04/12/17 at 10:37 Ranulfo ADAMS Apr 12, 2017 14:25
--- NOTE | 2017-04-12 18:03 | PN ---
Date/Time of Note Date/Time of Note DATE: 04/12/17 TIME: 18:00 Assessment/Plan VTE Prophylaxis VTE Prophylaxis Intervention: SCD's Lines/Catheters IV C[facility] Type (from [facility]): Peripheral IV Urinary Cath still in place: No (DTV by 1200\) Assessment/Plan Chief Complaint/Hosp Course Patient is shivering during examination, asked the nurse to take a temperature temporal temperature is 99.5, order cultures and chest x-ray, will start empiric Zosyn. Patient is with better controlled of pain when Dilaudid increased to 1 mg. Assessment/Plan 1. 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 Advance diet per surgery. Continue IV fluids, Dilaudid as needed for pain. 2. 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 Further recommendations based on clinical course. Plan of care discussed with Dr. Ellis. Problems: Exam/Review of Systems Vital Signs Vitals Vital Signs Date Time Temp Pulse Resp B/P Pulse Ox O2 Delivery O2 Flow Rate FiO2 04/12/17 08:38 97.9 81 14 108/71 97 04/10/17 22:58 Nasal Cannula 1.0 Intake and Output 04/11/17 04/11/17 04/12/17 15:00 23:00 07:00 Intake Total 400 ml 1460 ml 700 ml Output Total 1750 ml Balance 400 ml -290 ml 700 ml Exam Constitutional: alert, oriented Head: atraumatic, normocephalic Neck: supple Respiratory: clear to auscultation Cardiovascular: nl pulses Gastrointestinal: soft Musculoskeletal: nl extremities to inspection Extremities: normal pulses Neurological: BUS GIRL II-XII intact Results Result Diagram: 04/12/17 0455 04/12/17 0455 Results 24 hrs Laboratory Tests Test 04/12/17 04:55 04/12/17 06:50 White Blood Count 5.6 # Red Blood Count 3.64 L Hemoglobin 9.1 L Hematocrit 29.2 L Mean Corpuscular Volume 80.2 L Mean Corpuscular Hemoglobin 25.0 L Mean Corpuscular Hemoglobin Concent 31.2 L Red Cell Distribution Width 20.8 H Platelet Count 154 Mean Platelet Volume 10.5 H Neutrophils % 83.8 H Lymphocytes % 9.6 L Monocytes % 2.5 Eosinophils % 3.7 Basophils % 0.0 Nucleated Red Blood Cells % 0.0 Neutrophils # 4.7 Lymphocytes # 0.5 L Monocytes # 0.1 L Eosinophils # 0.2 Basophils # 0.0 Nucleated Red Blood Cells # 0.0 Sodium Level 136 Potassium Level 4.0 Chloride Level 105 Carbon Dioxide Level 26 Anion Gap 9 Blood Urea Nitrogen 5 L Creatinine 0.52 Glucose Level 130 Calcium Level 7.8 L Lab Scanned Report LAB Medications Medications Current Medications Hydromorphone HCl (Dilaudid) 0.2 mg Q2H PRN IV PAIN LEVEL 1-5; Start 04/08/17 at 14:30 Hydromorphone HCl (Dilaudid) 0.4 mg Q2H PRN IV PAIN LEVEL 6-10 Last administered on 04/12/17 08:24; Admin Dose 0.4 MG; Start 04/08/17 at 14:30 Diphenhydramine HCl (Benadryl) 25 mg Q4H PRN IV PRURITUS Last administered on 12:14; Admin Dose 25 MG; Start 04/08/17 at 14:30 Ondansetron HCl (Zofran Inj) 4 mg Q6H PRN IV NAUSEA AND/OR VOMITING Last administered on 04/11/17 11:34; Admin Dose 4 MG; Start 04/08/17 at 14:30 Naloxone HCl 0.2 mg 0.2 mg Q2M PRN IV FOR RESP RATE 8 OR LESS; Start 04/08/17 at 14:30 Potassium Chloride/Dextrose/ Sod Cl 1,000 ml @ 100 mls/hr Q10H IV Last administered on 04/12/17 08:23; Admin Dose 100 MLS/HR; Start 04/08/17 at 18:03 Acetaminophen (Ofirmev 1000mg/ 100ml Iv) 70 ml @ 400 mls/hr Q6H PRN IVPB FEVER Last administered on 04/11/17 16:00; Admin Dose 400 MLS/HR; Start 04/10/17 at 04:00 Acetaminophen/ Codeine Phosphate (Tylenol No.3) 1 tab Q6H PRN PO PAIN; Start at 13:30 Pantoprazole (Protonix Iv) 40 mg DAILY@06 IV Last administered on 04/12/17 05: 22; Admin Dose 40 MG; Start 04/11/17 at 13:30 Ondansetron HCl (Zofran Inj) 4 mg Q4H PRN IV NAUSEA AND/OR VOMITING; Start 04/11 at 13:30 Hydromorphone HCl (Dilaudid) 1 mg Q4H PRN IV PAIN Last administered on t 15:06; Admin Dose 1 MG; Start 04/12/17 at 10:37 JOSEFA ADAIR Apr 12, 2017 18:03
[2017-04-12 20:00] VITALS: BP 109/58; PULSE 98
[2017-04-12] MEDS: ACETAMINOPHEN 1000 MG/100 ML IVPB PRN (20:50)
[2017-04-12 21:11] VITALS: BP 109/58; RESP 20
[2017-04-12] MEDS: PIPER-TAZO 3.375 GM IV (PMX) 100 ML IVPB SCH (22:15)
[2017-04-12 22:58] LABS: ADD UMIC YES; URINE BILIRUBIN (Dip) NEGATIVE (NEGATIVE); URINE BLOOD (Dip) 3+ (NEGATIVE); URINE COLOR LT. YELLOW (YELLOW); URINE GLUCOSE (Dip) NEGATIVE (NEGATIVE); URINE KETONES (Dip) NEGATIVE (NEGATIVE); URINE LEUKOCYTE ESTERASE (Dip) 2+ (NEGATIVE); URINE NITRITE (Dip) NEGATIVE (NEGATIVE); URINE TOTAL PROTEIN (Dip) NEGATIVE (NEGATIVE); URINE UROBILINOGEN (Dip) 0.2 E.U./dL (0.1-1.0)
[2017-04-12 23:10] LABS: BACTERIA,URINE MANY; SQUAMOUS EPITHELIAL CELL,UR MODERATE; URINE RBCS >50 /HPF (0)
[2017-04-13 05:22] LABS: ADD SCAN DIFF NO
[2017-04-13 05:27] LABS: EOSINOPHILS # 0.3 10^3/ul (0.0-0.5); EOSINOPHILS % 3.6 % (0.0-7.0); HEMATOCRIT 29.2 % (37.0-47.0); HEMOGLOBIN 9.1 g/dl (12.0-16.0); LYMPHOCYTES # 0.9 10^3/ul (0.8-2.9); LYMPHOCYTES % 13.7 % (15.0-51.0); MEAN CORPUSCULAR HEMOGLOBIN 24.7 pg (29.0-33.0); MEAN CORPUSCULAR HGB CONC 31.2 g/dl (32.0-37.0); MEAN CORPUSCULAR VOLUME 79.3 fl (82.0-101.0); MEAN PLATELET VOLUME 10.1 fl (7.4-10.4); MONOCYTE # 0.3 10^3/ul (0.3-0.9); MONOCYTES % 4.5 % (0.0-11.0); NEUTROPHIL # 5.3 10^3/ul (1.6-7.5); NEUTROPHILS % 77.8 % (39.0-77.0); PLATELET COUNT 176 10^3/UL (140-415); RED BLOOD COUNT 3.68 10^6/ul (4.20-5.40); RED CELL DISTRIBUTION WIDTH 21.2 % (11.5-14.5); WHITE BLOOD COUNT 6.9 10^3/ul (4.8-10.8)
[2017-04-13 05:54] LABS: CALCIUM 7.8 mg/dl (8.4-10.2); CREATININE 0.52 mg/dl (0.44-1.00); POTASSIUM 4.1 mmol/L (3.5-5.1)
[2017-04-13] MEDS: PANTOPRAZOLE 40 MG INJ IV SCH (06:34)
[2017-04-13] MEDS: PIPER-TAZO 3.375 GM IV (PMX) 100 ML IVPB SCH ×3 (06:34→17:45)
[2017-04-13] MEDS: HYDROmorphONE 1 MG/ML SYG IV PRN ×5 (06:42→22:08)
--- NOTE | 2017-04-13 07:52 | RADRPT ---
PROCEDURE: XR Chest. CLINICAL INDICATION: r/o PNA TECHNIQUE: Single frontal view of the chest was obtained. COMPARISON: None. FINDINGS: The heart and mediastinum are within normal limits. There is a retrocardiac opacity and obscuration of the left hemidiaphragm due to subsegmental atelec tasis and / or infiltrate. There are hazy opacities in the mid to lower lung zones bilaterally due to pulmonary vascular conges tion and / or diffuse infiltrates. There is no significant pleural effusion or pneumothorax. IMPRESSION: Retrocardiac opacity due to subsegmental atelectasis and / or infiltrate. Hazy opacities in the mid to lower lung zones diffuse infiltrates versus pulmonary vascular congesti on. RPTAT: EE Physician Kimi Date Time Electronically viewed and signed by Physician Kimi on 04/13/2017 07:52 /
[2017-04-13] MEDS ORDERED: PIPER-TAZO 3.375 GM IV (PMX) 100 ML IVPB SCH (08:30)
[2017-04-13 08:53] VITALS: BP 110/66; RESP 16
--- NOTE | 2017-04-13 08:53 | PN ---
Date/Time of Note Date/Time of Note DATE: 04/13/17 TIME: 08:52 Assessment/Plan VTE Prophylaxis VTE Prophylaxis Intervention: SCD's Lines/Catheters IV Catheter Type (from Nrs): Peripheral IV Urinary Cath still in place: No (DTV by 1200\) Assessment/Plan Chief Complaint/Hosp Course s/p lap left hemicolectomy and lap splenic flexure mobilization Problems: Assessment/Plan full liquids Subjective 24 Hr Interval Summary Free Text/Dictation fever and chills overnight U/A positive for leukocyte esterase and wbc Exam/Review of Systems Vital Signs Vitals Vital Signs Date Time Temp Pulse Resp B/P Pulse Ox O2 Delivery O2 Flow Rate FiO2 04/12/17 22:00 99.0 04/12/17 21:11 98 20 109/58 93 04/12/17 20:00 Room Air 04/10/17 22:58 1.0 Intake and Output 04/12/17 04/12/17 04/13/17 15:00 23:00 07:00 Intake Total 1345 ml 1165 ml Output Total 1700 ml 1600 ml Balance -355 ml -435 ml Exam c/d/i no peritoneal signs, no rebound tenderness Results Result Diagram: 04/13/17 0450 04/13/17 0450 Results 24 hrs Laboratory Tests Test 04/12/17 22:00 04/13/17 04:50 Urine Color LT. YELLOW Urine Clarity SLIGHTLY CLOUDY Urine pH 6.5 Urine Specific [place] <=1.005 L Urine Ketones NEGATIVE Urine Nitrite NEGATIVE Urine Bilirubin NEGATIVE Urine Urobilinogen 0.2 E.U./dL Urine Leukocyte Esterase 2+ H Urine Microscopic RBC >50 Urine Microscopic WBC >200 Urine Squamous Epithelial Cells MODERATE Urine Bacteria MANY Urine Hemoglobin 3+ H Urine Glucose NEGATIVE Urine Total Protein NEGATIVE White Blood Count 6.9 # Red Blood Count 3.68 L Hemoglobin 9.1 L Hematocrit 29.2 L Mean Corpuscular Volume 79.3 L Mean Corpuscular Hemoglobin 24.7 L Mean Corpuscular Hemoglobin Concent 31.2 L Red Cell Distribution Width 21.2 H Platelet Count 176 Mean Platelet Volume 10.1 Neutrophils % 77.8 H Lymphocytes % 13.7 L Monocytes % 4.5 Eosinophils % 3.6 Basophils % 0.0 Nucleated Red Blood Cells % 0.0 Neutrophils # 5.3 Lymphocytes # 0.9 Monocytes # 0.3 Eosinophils # 0.3 Basophils # 0.0 Nucleated Red Blood Cells # 0.0 Sodium Level 139 Potassium Level 4.1 Chloride Level 109 Carbon Dioxide Level 27 Anion Gap 7 L Blood Urea Nitrogen 3 L Creatinine 0.52 Glucose Level 114 Calcium Level 7.8 L Medications Medications Current Medications Hydromorphone HCl (Dilaudid) 0.2 mg Q2H PRN IV PAIN LEVEL 1-5; Start 04/08/17 at 14:30 Hydromorphone HCl (Dilaudid) 0.4 mg Q2H PRN IV PAIN LEVEL 6-10 Last administered on 04/12/17 08:24; Admin Dose 0.4 MG; Start 04/08/17 at 14:30 Diphenhydramine HCl (Benadryl) 25 mg Q4H PRN IV PRURITUS Last administered on 12:14; Admin Dose 25 MG; Start 04/08/17 at 14:30 Ondansetron HCl (Zofran Inj) 4 mg Q6H PRN IV NAUSEA AND/OR VOMITING Last administered on 04/11/17 11:34; Admin Dose 4 MG; Start 04/08/17 at 14:30 Naloxone HCl 0.2 mg 0.2 mg Q2M PRN IV FOR RESP RATE 8 OR LESS; Start 04/08/17 at 14:30 Potassium Chloride/Dextrose/ Sod Cl 1,000 ml @ 100 mls/hr Q10H IV Last administered on 04/12/17 22:15; Admin Dose 100 MLS/HR; Start 04/08/17 at 18:03 Acetaminophen (Ofirmev 1000mg/ 100ml Iv) 70 ml @ 400 mls/hr Q6H PRN IVPB FEVER Last administered on 04/12/17 20:50; Admin Dose 400 MLS/HR; Start 04/10/17 at 04:00 Acetaminophen/ Codeine Phosphate (Tylenol No.3) 1 tab Q6H PRN PO PAIN; Start at 13:30 Pantoprazole (Protonix Iv) 40 mg DAILY@06 IV Last administered on 04/13/17 06: 34; Admin Dose 40 MG; Start 04/11/17 at 13:30 Ondansetron HCl (Zofran Inj) 4 mg Q4H PRN IV NAUSEA AND/OR VOMITING; Start 04/11 at 13:30 Hydromorphone HCl 1 mg 1 mg Q4H PRN IV PAIN Last administered on 04/13/17 06:42 ; Admin Dose 1 MG; Start 04/12/17 at 10:37 Piperacillin Sod/ Tazobactam Sod 100 ml @ 200 mls/hr Q8 IVPB Last administered on 04/13/17 06:34; Admin Dose 200 MLS/HR; Start 04/12/17 at 22:00 Metronidazole (Flagyl 500 Mg (Pmx)) 100 ml @ 100 mls/hr Q8 IVPB ; Start at 08:30; Status UNV Bacitracin/ Polymyxin B Sulfate (Polysporin Oint) 1 applic BID TOP ; Start at 09:00; Status UNV Ranulfo ADAMS Apr 13, 2017 08:53
[2017-04-13] MEDS: metroNIDAZOLE 500 MG/NS (PMX) 100 ML IVPB SCH ×2 (11:36→17:44)
[2017-04-13] MEDS: BACITRACIN/POLYMYXIN 28.35 GM OINT TOP SCH ×2 (11:38→20:46)
[2017-04-13] MEDS: D5W-0.45 NACL + KCL 20 MEQ 1,000 ML IV SCH ×2 (13:24→18:57)
--- NOTE | 2017-04-13 17:08 | PN ---
Date/Time of Note Date/Time of Note DATE: 04/13/17 TIME: 16:55 Assessment/Plan VTE Prophylaxis VTE Prophylaxis Intervention: SCD's Lines/Catheters IV [facility]ter Type (from [facility]): Peripheral IV Urinary Cath still in place: No (DTV by 1200\) Assessment/Plan Chief Complaint/Hosp Course Patient spiked a fever of 102.8 last night, no fever today, will follow up on cultures, continue antibiotics. Patient tolerated full liquids diet without any nausea. 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 Advance diet per surgery. Continue IV fluids, Dilaudid as needed for pain. - Postoperative fever, continue broad-spectrum antibiotics follow-up and urine and blood cultures. Chest x-ray reviewed, will decrease IV fluids encourage incentive spirometer every hour while patient is awake. 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 Further recommendations based on clinical course. Plan of care discussed with Dr. Ellis. Problems: Exam/Review of Systems Vital Signs Vitals Vital Signs Date Time Temp Pulse Resp B/P Pulse Ox O2 Delivery O2 Flow Rate FiO2 04/13/17 08:53 97.7 82 16 110/66 95 04/12/17 20:00 Room Air 04/10/17 22:58 1.0 Intake and Output 04/12/17 04/12/17 04/13/17 15:00 23:00 07:00 Intake Total 1345 ml 1165 ml Output Total 1700 ml 1600 ml Balance -355 ml -435 ml Exam Constitutional: alert, oriented Head: atraumatic, normocephalic Neck: supple Respiratory: clear to auscultation Cardiovascular: nl pulses Gastrointestinal: soft Musculoskeletal: nl extremities to inspection Extremities: normal pulses Neurological: STATION REPA[employer]ER II-XII intact Results Result Diagram: 04/13/17 0450 04/13/17 0450 Results 24 hrs Laboratory Tests Test 04/12/17 22:00 04/13/17 04:50 Urine Color LT. YELLOW Urine Clarity SLIGHTLY CLOUDY Urine pH 6.5 Urine Specific [place] <=1.005 L Urine Ketones NEGATIVE Urine Nitrite NEGATIVE Urine Bilirubin NEGATIVE Urine Urobilinogen 0.2 E.U./dL Urine Leukocyte Esterase 2+ H Urine Microscopic RBC >50 Urine Microscopic WBC >200 Urine Squamous Epithelial Cells MODERATE Urine Bacteria MANY Urine Hemoglobin 3+ H Urine Glucose NEGATIVE Urine Total Protein NEGATIVE White Blood Count 6.9 # Red Blood Count 3.68 L Hemoglobin 9.1 L Hematocrit 29.2 L Mean Corpuscular Volume 79.3 L Mean Corpuscular Hemoglobin 24.7 L Mean Corpuscular Hemoglobin Concent 31.2 L Red Cell Distribution Width 21.2 H Platelet Count 176 Mean Platelet Volume 10.1 Neutrophils % 77.8 H Lymphocytes % 13.7 L Monocytes % 4.5 Eosinophils % 3.6 Basophils % 0.0 Nucleated Red Blood Cells % 0.0 Neutrophils # 5.3 Lymphocytes # 0.9 Monocytes # 0.3 Eosinophils # 0.3 Basophils # 0.0 Nucleated Red Blood Cells # 0.0 Sodium Level 139 Potassium Level 4.1 Chloride Level 109 Carbon Dioxide Level 27 Anion Gap 7 L Blood Urea Nitrogen 3 L Creatinine 0.52 Glucose Level 114 Calcium Level 7.8 L Medications Medications Current Medications Hydromorphone HCl (Dilaudid) 0.2 mg Q2H PRN IV PAIN LEVEL 1-5; Start 04/08/17 at 14:30 Hydromorphone HCl (Dilaudid) 0.4 mg Q2H PRN IV PAIN LEVEL 6-10 Last administered on 04/12/17 08:24; Admin Dose 0.4 MG; Start 04/08/17 at 14:30 Diphenhydramine HCl (Benadryl) 25 mg Q4H PRN IV PRURITUS Last administered on 12:14; Admin Dose 25 MG; Start 04/08/17 at 14:30 Ondansetron HCl (Zofran Inj) 4 mg Q6H PRN IV NAUSEA AND/OR VOMITING Last administered on 04/11/17 11:34; Admin Dose 4 MG; Start 04/08/17 at 14:30 Naloxone HCl 0.2 mg 0.2 mg Q2M PRN IV FOR RESP RATE 8 OR LESS; Start 04/08/17 at 14:30 Potassium Chloride/Dextrose/ Sod Cl 1,000 ml @ 100 mls/hr Q10H IV Last administered on 04/13/17 13:24; Admin Dose 100 MLS/HR; Start 04/08/17 at 18:03 Acetaminophen (Ofirmev 1000mg/ 100ml Iv) 70 ml @ 400 mls/hr Q6H PRN IVPB FEVER Last administered on 04/12/17 20:50; Admin Dose 400 MLS/HR; Start 04/10/17 at 04:00 Acetaminophen/ Codeine Phosphate (Tylenol No.3) 1 tab Q6H PRN PO PAIN; Start at 13:30 Pantoprazole (Protonix Iv) 40 mg DAILY@06 IV Last administered on 04/13/17 06: 34; Admin Dose 40 MG; Start 04/11/17 at 13:30 Ondansetron HCl (Zofran Inj) 4 mg Q4H PRN IV NAUSEA AND/OR VOMITING; Start 04/11 at 13:30 Hydromorphone HCl 1 mg 1 mg Q4H PRN IV PAIN Last administered on 04/13/17 15:25 ; Admin Dose 1 MG; Start 04/12/17 at 10:37 Metronidazole (Flagyl 500 Mg (Pmx)) 100 ml @ 100 mls/hr Q8 IVPB Last administered on 04/13/17 11:36; Admin Dose 100 MLS/HR; Start 04/13/17 at 08:30 Bacitracin/ Polymyxin B Sulfate 1 applic 1 applic BID TOP Last administered on 04/13/17 11:38; Admin Dose 1 APPLIC; Start 04/13/17 at 10:00 Piperacillin Sod/ Tazobactam Sod (Zosyn 3.375gm/ 100 ml (Pmx)) 100 ml @ 200 mls /hr Q6 IVPB Last administered on 04/13/17 13:24; Admin Dose 200 MLS/HR; Start 04/13/17 at 12:00 JOSEFA ADAIR Apr 13, 2017 17:05
[2017-04-13 20:00] VITALS: BP 107/62; RESP 20
[2017-04-13 23:11] VITALS: BP 107/62; RESP 20
[2017-04-13] MEDS: ACETAMINOPHEN 1000 MG/100 ML IVPB PRN (23:47)
[2017-04-14] MEDS: PIPER-TAZO 3.375 GM IV (PMX) 100 ML IVPB SCH ×4 (00:08→17:48)
[2017-04-14] MEDS: HYDROmorphONE 1 MG/ML SYG IV PRN ×5 (00:10→17:48)
[2017-04-14] MEDS: metroNIDAZOLE 500 MG/NS (PMX) 100 ML IVPB SCH ×4 (00:43→21:03)
[2017-04-14] MEDS: PANTOPRAZOLE 40 MG INJ IV SCH (05:11)
[2017-04-14] MEDS: BACITRACIN/POLYMYXIN 28.35 GM OINT TOP SCH ×2 (08:25→21:03)
[2017-04-14 08:31] VITALS: BP 103/60; RESP 18
[2017-04-14] MEDS: D5W-0.45 NACL + KCL 20 MEQ 1,000 ML IV SCH (13:31)
--- NOTE | 2017-04-14 17:35 | PN ---
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 Advance diet per surgery. Continue IV fluids, Dilaudid as needed for pain. - Postoperative fever, continue broad-spectrum antibiotics follow-up and urine and blood cultures. Chest x-ray reviewed, will decrease IV fluids encourage incentive spirometer every hour while patient is awake. 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 Further recommendations based on clinical course. Plan of care discussed with Dr. Ellis. Subjective 24 Hr Interval Summary Free Text/Dictation nad, feels better, tolerating soft diet, uset stomach-per staff, will give her mylanta x 1. Respiratory: no complaints Cardiovascular: no complaints Gastrointestinal: no complaints Genitourinary: no complaints Musculoskeletal: back pain Exam/Review of Systems Vital Signs Vitals Vital Signs Date Time Temp Pulse Resp B/P Pulse Ox O2 Delivery O2 Flow Rate FiO2 04/14/17 08:31 98.2 71 18 103/60 97 04/12/17 20:00 Room Air 04/10/17 22:58 1.0 Intake and Output 04/13/17 04/13/17 04/14/17 15:00 23:00 07:00 Intake Total 675 ml 1790 ml 1160 ml Output Total 800 ml 1430 ml Balance 675 ml 990 ml -270 ml Exam Constitutional: alert, oriented, well developed Respiratory: clear to auscultation, normal air movement Cardiovascular: nl pulses, regular rate and rhythm Musculoskeletal: nl extremities to inspection Extremities: normal pulses Neurological: nl mental status, nl speech Skin: nl turgor Results Result Diagram: 04/13/17 04504/13/17 045 Medications Medications Current Medications Hydromorphone HCl (Dilaudid) 0.2 mg Q2H PRN IV PAIN LEVEL 1-5; Start 04/08/17 at 14:30 Hydromorphone HCl (Dilaudid) 0.4 mg Q2H PRN IV PAIN LEVEL 6-10 Last administered on 04/13/17t 22:08; Admin Dose 0.4 MG; Start 04/08/17 at 14:30 Diphenhydramine HCl (Benadryl) 25 mg Q4H PRN IV PRURITUS Last administered on 12:14; Admin Dose 25 MG; Start 04/08/17 at 14:30 Ondansetron HCl (Zofran Inj) 4 mg Q6H PRN IV NAUSEA AND/OR VOMITING Last administered on 04/11/17 11:34; Admin Dose 4 MG; Start 04/08/17 at 14:30 Naloxone HCl 0.2 mg 0.2 mg Q2M PRN IV FOR RESP RATE 8 OR LESS; Start 04/08/17 at 14:30 Potassium Chloride/Dextrose/ Sod Cl 1,000 ml @ 50 mls/hr Q20H IV Last administered on 04/14/17 13:31; Admin Dose 50 MLS/HR; Start 04/08/17 at 18:03 Acetaminophen (Ofirmev 1000mg/ 100ml Iv) 70 ml @ 400 mls/hr Q6H PRN IVPB FEVER Last administered on 04/13/17 23:47; Admin Dose 400 MLS/HR; Start 04/10/17 at 04:00 Acetaminophen/ Codeine Phosphate (Tylenol No.3) 1 tab Q6H PRN PO PAIN; Start at 13:30 Pantoprazole (Protonix Iv) 40 mg DAILY@06 IV Last administered on 04/14/17 05: 11; Admin Dose 40 MG; Start 04/11/17 at 13:30 Ondansetron HCl (Zofran Inj) 4 mg Q4H PRN IV NAUSEA AND/OR VOMITING; Start 04/11 at 13:30 Hydromorphone HCl 1 mg 1 mg Q4H PRN IV PAIN Last administered on 04/14/17 13:31 ; Admin Dose 1 MG; Start 04/12/17 at 10:37 Metronidazole (Flagyl 500 Mg (Pmx)) 100 ml @ 100 mls/hr Q8 IVPB Last administered on 04/14/17 13:30; Admin Dose 100 MLS/HR; Start 04/13/17 at 08:30 Bacitracin/ Polymyxin B Sulfate 1 applic 1 applic BID TOP Last administered on 04/14/17 08:25; Admin Dose 1 APPLIC; Start 04/13/17 at 10:00 Piperacillin Sod/ Tazobactam Sod (Zosyn 3.375gm/ 100 ml (Pmx)) 100 ml @ 200 mls /hr Q6 IVPB Last administered on 04/14/17t 11:51; Admin Dose 200 MLS/HR; Start 04/13/17 at 12:00 Oxycodone HCl (Roxicodone) 5 mg Q4H PRN PO PAIN; Start 04/14/17 at 13:00 ALIS BERNARD Apr 14, 2017 17:34
[2017-04-14] MEDS ORDERED: AL HYDROX/MG HYDROX/SIMETH 30 ML CUP PO ONE (18:00)
[2017-04-14] MEDS: oxyCODONE 5 MG TAB PO PRN (21:08)
[2017-04-14 22:02] VITALS: BP 107/63; RESP 20
[2017-04-15] MEDS: PIPER-TAZO 3.375 GM IV (PMX) 100 ML IVPB SCH ×2 (00:51→05:13)
[2017-04-15] MEDS: oxyCODONE 5 MG TAB PO PRN ×4 (01:01→21:00)
[2017-04-15] MEDS: HYDROmorphONE 1 MG/ML SYG IV PRN ×3 (02:04→09:28)
[2017-04-15] MEDS: PANTOPRAZOLE 40 MG INJ IV SCH (05:13)
[2017-04-15 05:32] LABS: ADD SCAN DIFF NO
[2017-04-15 05:38] LABS: BASOPHILS % 0.2 % (0.0-2.0); EOSINOPHILS # 0.4 10^3/ul (0.0-0.5); EOSINOPHILS % 8.6 % (0.0-7.0); HEMATOCRIT 30.2 % (37.0-47.0); HEMOGLOBIN 9.6 g/dl (12.0-16.0); LYMPHOCYTES # 1.2 10^3/ul (0.8-2.9); LYMPHOCYTES % 23.9 % (15.0-51.0); MEAN CORPUSCULAR HEMOGLOBIN 25.1 pg (29.0-33.0); MEAN CORPUSCULAR HGB CONC 31.8 g/dl (32.0-37.0); MEAN CORPUSCULAR VOLUME 79.1 fl (82.0-101.0); MEAN PLATELET VOLUME 9.8 fl (7.4-10.4); MONOCYTE # 0.4 10^3/ul (0.3-0.9); MONOCYTES % 7.6 % (0.0-11.0); NEUTROPHIL # 2.9 10^3/ul (1.6-7.5); NEUTROPHILS % 59.3 % (39.0-77.0); PLATELET COUNT 211 10^3/UL (140-415); RED BLOOD COUNT 3.82 10^6/ul (4.20-5.40); RED CELL DISTRIBUTION WIDTH 20.5 % (11.5-14.5); WHITE BLOOD COUNT 4.9 10^3/ul (4.8-10.8)
[2017-04-15 05:54] LABS: ANION GAP 10 (8-16); CALCIUM 8.6 mg/dl (8.4-10.2); CARBON DIOXIDE 28 mmol/L (21-31); CHLORIDE 105 mmol/L (97-110); CREATININE 0.56 mg/dl (0.44-1.00); GLUCOSE 112 mg/dl (70-220); POTASSIUM 4.3 mmol/L (3.5-5.1); SODIUM 139 mmol/L (135-144)
[2017-04-15 05:58] LABS: BLOOD UREA NITROGEN < 2 mg/dl (7-20)
[2017-04-15] MEDS: metroNIDAZOLE 500 MG/NS (PMX) 100 ML IVPB SCH (05:58)
[2017-04-15 08:14] VITALS: BP 111/62; RESP 18
[2017-04-15] MEDS: BACITRACIN/POLYMYXIN 28.35 GM OINT TOP SCH ×2 (09:28→19:55)
--- NOTE | 2017-04-15 10:23 | PN ---
Date/Time of Note Date/Time of Note DATE: 04/15/17 TIME: 10:23 Assessment/Plan VTE Prophylaxis VTE Prophylaxis Intervention: SCD's Lines/Catheters IV Catheter Type (from Nrsg): Peripheral IV Urinary Cath still in place: No Assessment/Plan Chief Complaint/Hosp Course s/p lap left hemicolectomy and lap splenic flexure mobilization Problems: Assessment/Plan when pain is under control with oral meds ok to dc home Subjective 24 Hr Interval Summary Free Text/Dictation doing well tolerating diet, having bm, still some pain control issues Exam/Review of Systems Vital Signs Vitals Vital Signs Date Time Temp Pulse Resp B/P Pulse Ox O2 Delivery O2 Flow Rate FiO2 04/15/17 08:14 98.4 70 18 111/62 97 04/12/17 20:00 Room Air Intake and Output 04/14/17 04/14/17 04/15/17 15:00 23:00 07:00 Intake Total 430 ml 1175 ml 1500 ml Output Total 600 ml Balance 430 ml 575 ml 1500 ml Exam c/d/i Results Result Diagram: 04/15/17 0442 04/15/17 0442 Results 24 hrs Laboratory Tests Test 04/15/17 04:42 04/15/17 07:12 White Blood Count 4.9 # Red Blood Count 3.82 L Hemoglobin 9.6 L Hematocrit 30.2 L Mean Corpuscular Volume 79.1 L Mean Corpuscular Hemoglobin 25.1 L Mean Corpuscular Hemoglobin Concent 31.8 L Red Cell Distribution Width 20.5 H Platelet Count 211 Mean Platelet Volume 9.8 Neutrophils % 59.3 Lymphocytes % 23.9 Monocytes % 7.6 Eosinophils % 8.6 H Basophils % 0.2 Nucleated Red Blood Cells % 0.0 Neutrophils # 2.9 Lymphocytes # 1.2 Monocytes # 0.4 Eosinophils # 0.4 Basophils # 0.0 Nucleated Red Blood Cells # 0.0 Sodium Level 139 Potassium Level 4.3 Chloride Level 105 Carbon Dioxide Level 28 Anion Gap 10 Blood Urea Nitrogen < 2 L Creatinine 0.56 Glucose Level 112 Calcium Level 8.6 Lab Scanned Report REFERENCE LAB Medications Medications Current Medications Hydromorphone HCl (Dilaudid) 0.2 mg Q2H PRN IV PAIN LEVEL 1-5; Start 04/08/17 at 14:30 Hydromorphone HCl (Dilaudid) 0.4 mg Q2H PRN IV PAIN LEVEL 6-10 Last administered on 04/15/17 02:04; Admin Dose 0.4 MG; Start 04/08/17 at 14:30 Diphenhydramine HCl (Benadryl) 25 mg Q4H PRN IV PRURITUS Last administered on 12:14; Admin Dose 25 MG; Start 04/08/17 at 14:30 Ondansetron HCl (Zofran Inj) 4 mg Q6H PRN IV NAUSEA AND/OR VOMITING Last administered on 04/11/17 11:34; Admin Dose 4 MG; Start 04/08/17 at 14:30 Naloxone HCl 0.2 mg 0.2 mg Q2M PRN IV FOR RESP RATE 8 OR LESS; Start 04/08/17 at 14:30 Potassium Chloride/Dextrose/ Sod Cl 1,000 ml @ 50 mls/hr Q20H IV Last administered on 04/14/17 13:31; Admin Dose 50 MLS/HR; Start 04/08/17 at 18:03 Acetaminophen (Ofirmev 1000mg/ 100ml Iv) 70 ml @ 400 mls/hr Q6H PRN IVPB FEVER Last administered on 04/13/17 23:47; Admin Dose 400 MLS/HR; Start 04/10/17 at 04:00 Acetaminophen/ Codeine Phosphate (Tylenol No.3) 1 tab Q6H PRN PO PAIN; Start at 13:30 Pantoprazole (Protonix Iv) 40 mg DAILY@06 IV Last administered on 04/15/17 05: 13; Admin Dose 40 MG; Start 04/11/17 at 13:30 Ondansetron HCl (Zofran Inj) 4 mg Q4H PRN IV NAUSEA AND/OR VOMITING; Start 04/11 at 13:30 Hydromorphone HCl 1 mg 1 mg Q4H PRN IV PAIN Last administered on 04/15/17 09:28 ; Admin Dose 1 MG; Start 04/12/17 at 10:37 Metronidazole (Flagyl 500 Mg (Pmx)) 100 ml @ 100 mls/hr Q8 IVPB Last administered on 04/15/17 05:58; Admin Dose 100 MLS/HR; Start 04/13/17 at 08:30 Bacitracin/ Polymyxin B Sulfate 1 applic 1 applic BID TOP Last administered on 04/15/17 09:28; Admin Dose 1 APPLIC; Start 04/13/17 at 10:00 Piperacillin Sod/ Tazobactam Sod (Zosyn 3.375gm/ 100 ml (Pmx)) 100 ml @ 200 mls /hr Q6 IVPB Last administered on 04/15/17 05:13; Admin Dose 200 MLS/HR; Start 04/13/17 at 12:00 Oxycodone HCl (Roxicodone) 5 mg Q4H PRN PO PAIN Last administered on 04/15/17 01:01; Admin Dose 5 MG; Start 04/14/17 at 13:00 Ranulfo ADAMS Apr 15, 2017 10:23
[2017-04-15] MEDS: D5W-0.45 NACL + KCL 20 MEQ 1,000 ML IV SCH (10:57)
--- NOTE | 2017-04-15 15:56 | PN ---
Date/Time of Note Date/Time of Note DATE: 04/15/17 TIME: 15:53 Assessment/Plan VTE Prophylaxis VTE Prophylaxis Intervention: SCD's Lines/Catheters [facility]from [facility] Peripheral IV Urinary Cath still in place: No Assessment/Plan Chief Complaint/Hosp Course Patient is able to tolerate soft diet well, is positive flatus, however still has significant amount of pain, Roxicodone dose increased by surgery. Anticipate discharge home tomorrow if pain is better controlled. 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 Advance diet per surgery. - Polymicrobial urinary tract infection, continue Levaquin. 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 Further recommendations based on clinical course. Plan of care discussed with Dr. Ellis. Problems: Exam/Review of Systems Vital Signs Vitals Vital Signs Date Time Temp Pulse Resp B/P Pulse Ox O2 Delivery O2 Flow Rate FiO2 04/15/17 08:14 98.4 70 18 111/62 97 04/12/17 20:00 Room Air Intake and Output 04/14/17 04/14/17 04/15/17 15:00 23:00 07:00 Intake Total 430 ml 1175 ml 1500 ml Output Total 600 ml Balance 430 ml 575 ml 1500 ml Exam Constitutional: alert, oriented Head: atraumatic, normocephalic Neck: supple Respiratory: clear to auscultation Cardiovascular: nl pulses Gastrointestinal: soft Musculoskeletal: nl extremities to inspection Extremities: normal pulses Neurological: RE DYE HAND II-XII intact Results Result Diagram: 04/15/17 0442 04/15/17 0442 Results 24 hrs Laboratory Tests Test 04/15/17 04:42 04/15/17 07:12 White Blood Count 4.9 # Red Blood Count 3.82 L Hemoglobin 9.6 L Hematocrit 30.2 L Mean Corpuscular Volume 79.1 L Mean Corpuscular Hemoglobin 25.1 L Mean Corpuscular Hemoglobin Concent 31.8 L Red Cell Distribution Width 20.5 H Platelet Count 211 Mean Platelet Volume 9.8 Neutrophils % 59.3 Lymphocytes % 23.9 Monocytes % 7.6 Eosinophils % 8.6 H Basophils % 0.2 Nucleated Red Blood Cells % 0.0 Neutrophils # 2.9 Lymphocytes # 1.2 Monocytes # 0.4 Eosinophils # 0.4 Basophils # 0.0 Nucleated Red Blood Cells # 0.0 Sodium Level 139 Potassium Level 4.3 Chloride Level 105 Carbon Dioxide Level 28 Anion Gap 10 Blood Urea Nitrogen < 2 L Creatinine 0.56 Glucose Level 112 Calcium Level 8.6 Lab Scanned Report REFERENCE LAB Medications Medications Current Medications Acetaminophen (Ofirmev 1000mg/ 100ml Iv) 70 ml @ 400 mls/hr Q6H PRN IVPB FEVER Last administered on 04/13/17 23:47; Admin Dose 400 MLS/HR; Start 04/10/17 at 04:00 Acetaminophen/ Codeine Phosphate (Tylenol No.3) 1 tab Q6H PRN PO PAIN; Start at 13:30 Pantoprazole (Protonix Iv) 40 mg DAILY@06 IV Last administered on 04/15/17 05: 13; Admin Dose 40 MG; Start 04/11/17 at 13:30 Ondansetron HCl (Zofran Inj) 4 mg Q4H PRN IV NAUSEA AND/OR VOMITING; Start 04/11 at 13:30 Bacitracin/ Polymyxin B Sulfate (Polysporin Oint) 1 applic BID TOP Last administered on 04/15/17 09:28; Admin Dose 1 APPLIC; Start 04/13/17 at 10:00 Oxycodone HCl (Roxicodone) 5 mg Q4H PRN PO PAIN Last administered on 04/15/17 01:01; Admin Dose 5 MG; Start 04/14/17 at 13:00 Oxycodone HCl 10 mg 10 mg Q4H PRN PO SEVERE PAIN Last administered on 04/15/17 12:49; Admin Dose 10 MG; Start 04/15/17 at 10:00 Levofloxacin/ Dextrose (Levaquin 500mg/ D5W 100 ml (Pmx)) 100 ml @ 100 mls/hr Q24H IVPB ; Start 04/15/17 at 18:00 JOSEFA ADAIR Apr 15, 2017 15:56
[2017-04-15] MEDS ORDERED: LEVOFLOXACIN 500MG/D5W (PMX) 100 ML IVPB SCH (18:00)
[2017-04-15 19:00] VITALS: BP 107/66; RESP 18
[2017-04-15] MEDS: DOCOSANOL 2 GM CREAM TOP SCH ×2 (19:54→21:00)
[2017-04-16] MEDS: oxyCODONE 5 MG TAB PO PRN ×4 (01:00→14:22)
[2017-04-16 05:04] LABS: ADD SCAN DIFF NO
[2017-04-16 05:16] LABS: EOSINOPHILS # 0.5 10^3/ul (0.0-0.5); EOSINOPHILS % 7.7 % (0.0-7.0); HEMATOCRIT 31.5 % (37.0-47.0); LYMPHOCYTES # 1.5 10^3/ul (0.8-2.9); LYMPHOCYTES % 23.3 % (15.0-51.0); MEAN CORPUSCULAR HEMOGLOBIN 24.8 pg (29.0-33.0); MEAN CORPUSCULAR HGB CONC 31.7 g/dl (32.0-37.0); MEAN CORPUSCULAR VOLUME 78.2 fl (82.0-101.0); MEAN PLATELET VOLUME 9.4 fl (7.4-10.4); MONOCYTE # 0.6 10^3/ul (0.3-0.9); MONOCYTES % 8.8 % (0.0-11.0); NEUTROPHIL # 3.9 10^3/ul (1.6-7.5); NEUTROPHILS % 59.4 % (39.0-77.0); PLATELET COUNT 267 10^3/UL (140-415); RED BLOOD COUNT 4.03 10^6/ul (4.20-5.40); RED CELL DISTRIBUTION WIDTH 20.2 % (11.5-14.5); WHITE BLOOD COUNT 6.5 10^3/ul (4.8-10.8)
[2017-04-16 05:28] LABS: CALCIUM 8.6 mg/dl (8.4-10.2); CREATININE 0.6 mg/dl (0.44-1.00); POTASSIUM 4.2 mmol/L (3.5-5.1)
[2017-04-16] MEDS: PANTOPRAZOLE 40 MG INJ IV SCH (06:44)
[2017-04-16 07:39] VITALS: BP 92/60; RESP 18
[2017-04-16] MEDS: DOCOSANOL 2 GM CREAM TOP SCH ×2 (09:37→12:00)
[2017-04-16] MEDS: BACITRACIN/POLYMYXIN 28.35 GM OINT TOP SCH (09:37)
--- NOTE | 2017-04-16 09:57 | PN ---
Date/Time of Note Date/Time of Note DATE: 04/16/17 TIME: 09:56 Assessment/Plan VTE Prophylaxis VTE Prophylaxis Intervention: SCD's Lines/Catheters IV Catheter Type (from Nrs): [place] Urinary Cath still in place: No Assessment/Plan Chief Complaint/Hosp Course s/p lap left hemicolectomy and lap splenic flexure mobilization Problems: Assessment/Plan doing well dc home today and f/u in 2 weeks Subjective 24 Hr Interval Summary Free Text/Dictation doing well, tolerating diet, having bm Exam/Review of Systems Vital Signs Vitals Vital Signs Date Time Temp Pulse Resp B/P Pulse Ox O2 Delivery O2 Flow Rate FiO2 04/16/17 07:39 98.0 77 18 92/60 99 04/12/17 20:00 Room Air Intake and Output 04/15/17 04/15/17 04/16/17 15:00 23:00 07:00 Intake Total 1235 ml 4 ml Balance 1235 ml 4 ml Exam incision c/d/i Results Result Diagram: 04/16/17 0450 04/16/17 0450 Results 24 hrs Laboratory Tests Test 04/16/17 04:50 White Blood Count 6.5 # Red Blood Count 4.03 L Hemoglobin 10.0 L Hematocrit 31.5 L Mean Corpuscular Volume 78.2 L Mean Corpuscular Hemoglobin 24.8 L Mean Corpuscular Hemoglobin Concent 31.7 L Red Cell Distribution Width 20.2 H Platelet Count 267 # Mean Platelet Volume 9.4 Neutrophils % 59.4 Lymphocytes % 23.3 Monocytes % 8.8 Eosinophils % 7.7 H Basophils % 0.0 Nucleated Red Blood Cells % 0.0 Neutrophils # 3.9 Lymphocytes # 1.5 Monocytes # 0.6 Eosinophils # 0.5 Basophils # 0.0 Nucleated Red Blood Cells # 0.0 Sodium Level 139 Potassium Level 4.2 Chloride Level 105 Carbon Dioxide Level 28 Anion Gap 10 Blood Urea Nitrogen 3 L Creatinine 0.60 Glucose Level 100 Calcium Level 8.6 Medications Medications Current Medications Acetaminophen (Ofirmev 1000mg/ 100ml Iv) 70 ml @ 400 mls/hr Q6H PRN IVPB FEVER Last administered on 04/13/17t 23:47; Admin Dose 400 MLS/HR; Start 04/10/17 at 04:00 Acetaminophen/ Codeine Phosphate (Tylenol No.3) 1 tab Q6H PRN PO PAIN; Start at 13:30 Pantoprazole (Protonix Iv) 40 mg DAILY@06 IV Last administered on 04/16/17 06: 44; Admin Dose 40 MG; Start 04/11/17 at 13:30 Ondansetron HCl (Zofran Inj) 4 mg Q4H PRN IV NAUSEA AND/OR VOMITING; Start 04/11 at 13:30 Bacitracin/ Polymyxin B Sulfate (Polysporin Oint) 1 applic BID TOP Last administered on 04/16/17 09:37; Admin Dose 1 APPLIC; Start 04/13/17 at 10:00 Oxycodone HCl (Roxicodone) 5 mg Q4H PRN PO PAIN Last administered on 04/16/17 01:00; Admin Dose 5 MG; Start 04/14/17 at 13:00 Oxycodone HCl 10 mg 10 mg Q4H PRN PO SEVERE PAIN Last administered on 09:42; Admin Dose 10 MG; Start 04/15/17 at 10:00 Levofloxacin/ Dextrose (Levaquin 500mg/ D5W 100 ml (Pmx)) 100 ml @ 100 mls/hr Q24H IVPB Last administered on 04/15/17 18:23; Admin Dose 100 MLS/HR; Start 04/15/17 at 18:00 Ranulfo ADAMS Apr 16, 2017 09:57
--- NOTE | 2017-04-16 12:06 | DS ---
Date/Time of Note Date/Time of Note DATE: 04/16/17 TIME: 12:04 Discharge Summary Admission/Discharge Info Admit Date/Time Apr 08, 2017 at 11:05 Discharge Date/Time 04/16/17 Final Diagnosis 1) colon cancer Patient Condition: Fair Consults surgery Procedures Laparoscopic left hemicolectomy with low pelvic colorectal anastomosis. Hx of Present Illness Patient comes in with colon cancer Hospital Course Patient is able to tolerate soft diet well, is positive flatus, however still has significant amount of pain, Roxicodone dose increased by surgery. Patient' s condition improved and so is discharged home. 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 Advance diet per surgery. - Polymicrobial urinary tract infection, continue Levaquin. 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 Further recommendations based on clinical course. Plan of care discussed with Dr. Ellis. Home Meds No Active Prescriptions or Reported Meds Primary Care Provider Not On Staff Doctor Pending Labs Laboratory Tests Test 04/16/17 04:50 White Blood Count 6.510^3/ul (4.8-10.8) Red Blood Count 4.0310^6/ul (4.20-5.40) Hemoglobin 10.0g/dl (12.0-16.0) Hematocrit 31.5% (37.0-47.0) Mean Corpuscular Volume 78.2fl (82.0-101.0) Mean Corpuscular Hemoglobin 24.8pg (29.0-33.0) Mean Corpuscular Hemoglobin Concent 31.7g/dl (32.0-37.0) Red Cell Distribution Width 20.2% (11.5-14.5) Platelet Count 77554^3/UL (140-415) Mean Platelet Volume 9.4fl (7.4-10.4) Neutrophils % 59.4% (39.0-77.0) Lymphocytes % 23.3% (15.0-51.0) Monocytes % 8.8% (0.0-11.0) Eosinophils % 7.7% (0.0-7.0) Basophils % 0.0% (0.0-2.0) Nucleated Red Blood Cells % 0.0/100WBC (0.0-0.0) Neutrophils # 3.910^3/ul (1.6-7.5) Lymphocytes # 1.510^3/ul (0.8-2.9) Monocytes # 0.610^3/ul (0.3-0.9) Eosinophils # 0.510^3/ul (0.0-0.5) Basophils # 0.010^3/ul (0.0-0.1) Nucleated Red Blood Cells # 0.010^3/ul (0.0-0.0) Sodium Level 139mmol/L (135-144) Potassium Level 4.2mmol/L (3.5-5.1) Chloride Level 105mmol/L (97-110) Carbon Dioxide Level 28mmol/L (21-31) Anion Gap 10 (8-16) Blood Urea Nitrogen 3mg/dl (7-20) Creatinine 0.60mg/dl (0.44-1.00) Glucose Level 100mg/dl (70-220) Calcium Level 8.6mg/dl (8.4-10.2) SUNDAY BANERJEE Apr 16, 2017 12:06
== END 2017-04-16 14:35 | disposition home or self-care (01) | DRG 330 ==
LOC: REC 11:05 → EDSEX 13:00 → MS1 19:20
PROVIDERS: ADMIT Internal Medicine; ATTEND Surgery
PROC: 0DNG4ZZ Release Left Large Intestine, Percutaneous Endoscopic Approach (ICD-10-PCS; 2017-04-08)
PROC: 0DTG4ZZ Resection of Left Large Intestine, Percutaneous Endoscopic Approach (ICD-10-PCS; principal; 2017-04-08 13:00)
DX: C18.7 Malignant neoplasm of sigmoid colon (principal); Z68.1 Body mass index [BMI] 19.9 or less, adult; E44.1 Mild protein-calorie malnutrition; N39.0 Urinary tract infection, site not specified; K66.0 Peritoneal adhesions (postprocedural) (postinfection); R50.82 Postprocedural fever; K21.9 Gastro-esophageal reflux disease without esophagitis; B96.5 Pseudomonas (aeruginosa) (mallei) (pseudomallei) as the cause of diseases classified elsewhere; Z87.891 Personal history of nicotine dependence
CPT/HCPCS: 71010; 74010; 80048; 80053; 81001; 85025; 87040; 87075; 87086; 88309; C9113; J0131; J0295; J1100; J1170; J1200; J1885; J1956; J2175; J2250; J2405; J2543; J2710; J3010; J3480; J7030